=== PATIENT | female | born 1965 | race Caucasian/White ===

== ENCOUNTER 2024-05-12 20:23 | Emergency (ER) | payer BC ==
[~2024-05-12] VITALS: Ht 157.5 cm; Wt 49.9 kg
[2024-05-12] MEDS ORDERED: SILVER SULFADIAZINE 1% CREAM 50 GM TP ONE (21:19)
[2024-05-12] MEDS ORDERED: HYDR-4209 PO (21:22)
[2024-05-12] MEDS ORDERED: SILV50CR32 TP (21:22)
[2024-05-12] MEDS ORDERED: TDAP DIPH,PERTUSS,TET VAC/PF 0.5 ML DISP.SYRIN IM ONE (21:31)
[2024-05-12 21:43] VITALS: BP 127/78; O2SAT 100
== END 2024-05-12 21:34 | disposition home or self-care (01) ==
LOC: ER 20:26
DX: T23.022A Burn of unspecified degree of single left finger (nail) except thumb, initial encounter (principal); Z79.899 Other long term (current) drug therapy; X58.XXXA Exposure to other specified factors, initial encounter; Y93.E4 Activity, ironing; Y92.89 Other specified places as the place of occurrence of the external cause; Y99.8 Other external cause status
CPT/HCPCS: 16020; 90715; A4606; A4663